=== PATIENT | female | born 1955 | race Caucasian/White ===

== ENCOUNTER → 2021-11-04 | Outpatient (CLI) | payer MEDICARE | END | disposition home or self-care (01) | LOC: RAH 13:07 | PROVIDERS: ATTEND Orthopaedic Surgery | DX: M17.12 Unilateral primary osteoarthritis, left knee (principal) | CPT/HCPCS: 73700 ==

== ENCOUNTER → 2022-12-12 | Outpatient (CLI) | payer MEDICARE ==
[~2022-12-12] MED LIST: AEC81 PO; CELE-84 PO; PANT40TA54 PO; REGADENOSON 0.4 MG/5 ML PF SYG IVP ONE; VALS160T29 PO; tylenol arthritis PO
== END | disposition home or self-care (01) ==
LOC: SHCH 10:47
PROVIDERS: ATTEND Internal Medicine Cardiovascular Disease
DX: R07.9 Chest pain, unspecified (principal)
CPT/HCPCS: 78452; 96374; 93017; J2785; A9500 ×2

== ENCOUNTER → 2023-03-20 | Outpatient (CLI) | payer SELFPAY ==
[~2023-03-20] MED LIST changes: +CELE-125 PO; -CELE-84 PO; -REGADENOSON 0.4 MG/5 ML PF SYG IVP ONE
== END | disposition home or self-care (01) ==
LOC: RAH 09:47
PROVIDERS: ATTEND Internal Medicine Cardiovascular Disease
DX: Z13.6 Encounter for screening for cardiovascular disorders (principal)
CPT/HCPCS: 75571

== ENCOUNTER 2025-02-04 05:34 | Day surgery (SDC) | payer MEDICARE ==
--- NOTE | 2025-01-31 11:20 | EKG ---
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
[2025-01-31 11:25] LABS: IMMATURE GRANULOCYTE ABSOLUTE 0.03 K/uL (0-1); NUCLEATED RED BLOOD CELLS 0.0 % (0.0-0.19); PLATELET COUNT (AUTO) 256 K/uL (130-400); RED BLOOD CELL COUNT(AUTO) 4.44 MIL/uL (4.00-5.50); RED CELL DISTRIBUTION WIDTH 12.2 % (11.0-15.5); WHITE BLOOD COUNT (AUTO) 8.0 K/uL (4.8-10.8)
[2025-01-31 11:28] VITALS: BP 138/71; PULSE 51; RESP 17; TEMP 97.2
[2025-01-31 11:33] LABS: CREATININE 0.8 mg/dL (0.5-1.0); GLOMERULAR FILTR. RATE CALC 79.0 mL/min (>90); GLUCOSE,RANDOM 95.0 mg/dL (70-105); SODIUM SERUM 135.0 mmol/L (136-145); UREA NITROGEN, BLOOD 12.0 mg/dL (7-18)
[2025-01-31 11:37] LABS: INR 0.96 (0.85-1.15)
[2025-01-31 12:14] LABS: APPEARANCE,URINE CLEAR (CLEAR); GLUCOSE, URINE (UA) NEGATIVE (NEGATIVE); LEUKOCYTE ESTERASE ,URINE NEGATIVE Leu/uL (NEGATIVE); NITRATE,URINE NEGATIVE (NEGATIVE); OCCULT BLOOD,URINE SMALL (NEGATIVE)
[2025-01-31 12:16] LABS: ADD UA MICROSCOPIC YES
[2025-01-31 12:22] LABS: SQUAMOUS EPITHELIAL CELL,UR RARE /HPF (0-2)
--- NOTE | 2025-01-31 16:23 | HMCIMG ---
CHEST 1VW REASON: PRE OP COMPARISON: None. FINDINGS: Single view of the chest was obtained. Lungs are clear. Heart size is normal. There is no pulmonary vascular congestion. Mediastinum and bony thorax appear unremarkable. IMPRESSION: 1. Normal single view chest x-ray.
[2025-02-04] VITALS (11 sets, daily range): BP systolic 119–136; BP diastolic 63–83; PULSE 59–72; RESP 10–18; TEMP 97.1–97.3
[~2025-02-04] VITALS: Ht 170.2 cm; Wt 73.8 kg
[~2025-02-04 05:34] MED LIST changes: -CELE-125 PO; +CITA-107 PO; +EZET10TA80 PO; +METO-408 PO; +RANO500T6 PO; +SEMA1PEN3 SQ; -tylenol arthritis PO
[2025-02-04] MEDS: 0.9%NACL 1000ML 1,000 ML IV SCH (06:33)
[2025-02-04] MEDS ORDERED: LIDOCAINE HCL 400MG/20ML VIAL ONE (07:08)
[2025-02-04] MEDS ORDERED: NITROGLYCERIN 50MG VIAL ONE (07:08)
[2025-02-04] MEDS ORDERED: HEParin-NS 1,000 UNIT/500 ML 1,000 ML IV ONE (07:08)
[2025-02-04] MEDS ORDERED: IOHEXOL 350 MG/ML 100ML INFUS..BTL IV ONE (07:08)
[2025-02-04] MEDS ORDERED: MIDAZOLAM HCL 1 MG/ML 2ML VIAL ONE (07:23)
--- NOTE | 2025-02-04 08:22 | PRN ---
Cath Procedure Report CATH PROCEDURE REPORT CARDIAC CATHETERIZATION REPORT Date of Service: Feb 04, 2025 After informed consent the patient was prepped and draped in the usual fashion. She received 15 cc of 2% xylocaine in the right femoral artery. A six [place] sheath was introduced into the right femoral artery using modified Seldinger technique. A [place] four right six [place] diagnostic catheter was advanced over guidewire to the aortic root. Wire was removed and catheter engaged into the [place] right coronary artery. The right coronary artery was visualized in multiple planes the catheter was removed. A [place] four left six [place] diagnostic catheter was advanced over guidewire to the aortic root. Wire was removed and catheter engaged into the left main coronary artery. The left coronary system was visualized multiple planes the catheter was removed. Pigtail catheter was then advanced over guidewire across the aortic valve. Wire was removed and hemodynamics measured. A pullback with continuous hemodynamic monitoring was performed and catheter was removed. A sheathogram performed and Angio-Seal closure device applied. The entire procedure was well tolerated without complications. Findings: Right coronary artery is a right-dominant vessel. It is free of obstruction gives rise to normal PDA and posterolateral branches. The left main coronary artery is free of obstruction. The left anterior descending artery has a proximal 20% calcified stenosis. The remainder of the LAD is free of obstruction and it gives rise to normal diagonal branches. The circumflex artery is a nondominant vessel free of obstruction gives rise to normal obtuse marginal arteries. There was no evidence of aortic stenosis. Summary: 20% calcified plaque in the proximal LAD medical management advised. Report dictated by HEMA Schmidt MD, MD Feb 04, 2025 08:22
--- NOTE | 2025-02-04 11:15 | NUR ---
AMBULATORY/URINARY: ASSISTED TO STANDING POSITION WITHOUT COMPLAINING OF DIZZINESS. AMBULATED TO BATHROOM WITH ASSISTANCE SLOW STEADY GAIT. PT VOIDED QS YELLOW COLOR URINE WITHOUT DIFFICULTY. ASSISTED TO CHAIR.
== END 2025-02-04 12:30 | disposition home or self-care (01) ==
LOC: DAH 05:34
PROVIDERS: ATTEND Internal Medicine Cardiovascular Disease
DX: I25.118 Atherosclerotic heart disease of native coronary artery with other forms of angina pectoris (principal); R93.1 Abnormal findings on diagnostic imaging of heart and coronary circulation; I25.84 Coronary atherosclerosis due to calcified coronary lesion; E78.5 Hyperlipidemia, unspecified; I10 Essential (primary) hypertension; R07.89 Other chest pain; I25.83 Coronary atherosclerosis due to lipid rich plaque; Z90.49 Acquired absence of other specified parts of digestive tract; Z90.89 Acquired absence of other organs; Z96.652 Presence of left artificial knee joint; Z79.82 Long term (current) use of aspirin; Z79.899 Other long term (current) drug therapy
CPT/HCPCS: 80048; 83880; 85025; 85610; 85730; 81001; 36415; 71045; 93005; 93458; C1894; C1760; Q9965; J3490 ×2; J7030; J1644; Q9967; A4215; A4222; A4221; A4663; A4216; A4606; A4223 ×3; J2250